=== PATIENT | female | born 1985 | race Caucasian/White ===

== ENCOUNTER 2022-03-03 15:11 | Outpatient (CLI) | payer BC, SELFPAY ==
[2022-03-03 18:19] LABS: HIV 1/2/P24 Combo Screen* Negative (Negative)
[2022-03-03 18:25] LABS: Hepatitis C Virus Antibody* Negative (Negative)
[2022-03-03 19:48] LABS: Chlamydia DNA Amplified* NOT DETECTED (No Detected); GC DNA Amplified* NOT DETECTED (No Detected)
== END 2022-03-03 15:12 | disposition home or self-care (01) ==
PROVIDERS: Visit Provider Advanced Practice Midwife
DX: Z34.90 Encounter for supervision of normal pregnancy, unspecified, unspecified trimester (principal); Z11.3 Encounter for screening for infections with a predominantly sexual mode of transmission
CPT/HCPCS: 86703; 86803; 87491; 87591

== ENCOUNTER 2022-03-15 08:21 | Outpatient (CLI) | payer BC, SELFPAY ==
--- NOTE | 2022-03-15 08:15 | CRLHL7_ITS ---
For Patients: As a result of the Century Cures Act, medical imaging exams and procedure reports are released immediately into your electronic medical record. You may view this report before your referring provider. If you have questions, please contact your health care provider. INDICATION: Evaluate anatomy. COMPARISON: none TECHNIQUE: Real time luna scale imaging of the fetus was performed as well as color Doppler analysis of the umbilical vessels. FINDINGS: Sonographic imaging demonstrates a single living intrauterine gestation. Fetus demonstrates a regular cardiac rate of 144 beats per minute. Fetus has a variable position. The placenta lies posterior without evidence of placenta previa. The edge of the placenta is located 4.9 cm from the internal cervical os. Amniotic fluid volume appears normal. Single deepest vertical pocket: 6.3 cm. The cervix is closed and measures 4.3 cm in length. The composite ultrasound gestational age is calculated at 23 weeks 3 days with an estimated sonographic due date of 07/09/2022. The estimated weight is 614 grams which lies at the 52nd %. The following biometric measurements were obtained: Biparietal diameter: 5.5 cm/22 weeks 5 days 20th% Head circumference: 21.0 cm/23 weeks 1 day 22nd% Abdominal circumference: 19.4 cm/24 weeks 0 days 62nd% Femur length: 4.1 cm/23 weeks 2 days 35th% The HC/AC ratio measures: 1.09 range (1.05-1.21) On anatomic survey, there is a normal appearance of the cerebral ventricles, cavum septi pellucidi, cisterna magna and cerebellum. The nose, lips, and facial profile appear normal. The cervical, thoracic and lumbar spine are well visualized and appear normal. There is a normal four-chamber heart view and the left and right ventricular outflow tracts appear normal. The diaphragm and stomach appear normal. The kidneys and bladder also appear normal. There is a normal three-vessel cord and cord insertion site. The four extremities appear normal. IMPRESSION: Normal OB ultrasound exam with concordance of clinical and sonographic dating. No intrinsic abnormalities noted on anatomic survey. Dictated by Ran Cespedes MD @ 03/15/2022 9:55:12 AM (Electronically Signed)
== END 2022-03-15 08:22 | disposition home or self-care (01) ==
LOC: US 08:21
PROVIDERS: Visit Provider Advanced Practice Midwife
DX: Z34.92 Encounter for supervision of normal pregnancy, unspecified, second trimester (principal); Z3A.23 23 weeks gestation of pregnancy
CPT/HCPCS: 76805

== ENCOUNTER 2022-04-12 10:08 | Outpatient (CLI) | payer BC, SELFPAY ==
[2022-04-14 07:27] LABS: Rapid Plasma Reagin (RPR) Non Reactive (Non Reactive)
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
== END 2022-04-12 10:09 | disposition home or self-care (01) ==
LOC: NFLDREF 12:53
PROVIDERS: Visit Provider Advanced Practice Midwife
DX: Z34.90 Encounter for supervision of normal pregnancy, unspecified, unspecified trimester (principal)
CPT/HCPCS: 86592

== ENCOUNTER 2022-06-14 09:29 | Outpatient (CLI) | payer BC, SELFPAY ==
[2022-06-15 11:46] LABS: Strep B DNA Probe POSITIVE (Negative)
[2022-06-15 11:47] LABS: Strep B Pen/Amox Allergy No
== END 2022-06-14 09:30 | disposition home or self-care (01) ==
LOC: NFLDREF 09:29
PROVIDERS: PCP Advanced Practice Midwife; Visit Provider Advanced Practice Midwife
DX: Z34.93 Encounter for supervision of normal pregnancy, unspecified, third trimester (principal)
CPT/HCPCS: 87081; 87653

== ENCOUNTER 2022-06-22 14:25 | Outpatient (CLI) | payer BC, SELFPAY | END 2022-06-22 14:26 | disposition home or self-care (01) | LOC: NFLDREF 06-24 14:24 | PROVIDERS: PCP Registered Nurse; Referring Provider Registered Nurse; Visit Provider Registered Nurse | DX: Z20.822 Contact with and (suspected) exposure to COVID-19 (principal); J06.9 Acute upper respiratory infection, unspecified | CPT/HCPCS: 87631 ==

== ENCOUNTER 2022-06-24 11:50 | Outpatient (CLI) | payer BC, SELFPAY ==
[2022-06-24 12:12] VITALS: BP 93/54; PULSE 86; RESP 18; TEMP 37.2
[2022-06-24 13:02] LABS: Appearance Urine Clear (Clear); Bilirubin Urine Negative (Negative); Blood Urine Negative (Negative); Color Urine Yellow (Yellow); Glucose Urine Negative (Negative); Ketones Urine Negative (Negative); Leukocyte Esterase Urine Negative (Negative); Nitrite Urine Negative (Negative); Protein Urine Negative (Negative); Urobilinogen Urine 0.2 (0.2-1.0); pH Urine 6.5 (5.0-8.5)
--- NOTE | 2022-06-24 13:09 | P.OBO_ITS ---
OB Outpatient HPI History of Present Illness Date Seen: 06/24/22 History of Present Illness: 36 year old at weeks gestation by first trimester ultrasound, JESSIE 07/09/22, presents with complaints of intermittent abdominal pain and decreased movement. She noticed less movement for the last two days and was having occasional contractions and describes abdominal pain that is sometimes pulling in nature. Baby moving naturally: Yes (since admission to triage) Bleeding: No Contractions: Yes (occasional) Leaking fluid: No Discharge: No Heartburn: No Back pain: No Meds Home Medications and Allergies Home Medications Medication Instructions Recorded Confirmed Type prenat.vits,suman,qpu-ziop-hcuix 1 tab PO QDAY 03/03/22 06/24/22 History Allergies Allergy/AdvReac Type Severity Reaction Status Date / Time azithromycin Allergy Unknown Verified 06/22/22 12:57 bee venom protein (honey bee) Allergy Unknown Verified 06/22/22 12:57 erythromycin base Allergy Unknown Verified 06/22/22 12:57 enviromental Allergy Unknown Uncoded 06/22/22 12:57 [facility] Medical History (Updated 06/24/22 @ 16:46 by Ene Dockery CNM) ADHD Anxiety Bipolar 1 disorder Depression Endometriosis History of HPV infection Hx of smoking URI (upper respiratory infection) Surgical History (Updated 03/03/22 @ 12:29 by Nena Perera PA-C) History of colposcopy with cervical biopsy History of laparoscopy Family History (Updated 03/03/22 @ 14:35 by Brittny Dc CNM) Father Leukemia Prediabetes Paternal Grandfather Diabetes Social History (Updated 03/03/22 @ 14:37 by Brittny Dc CNM) Narrative: SOCIAL??? 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 Partner: Khai zuleta Lives with: Khai, and 4 daughters (his 2 channel partners)??? Pets: 1 dog Abuse: Denies past/present??? Special Diet: Denies??? Ok with a blood transfusion: yes??? Culture or jehovah's witness beliefs: denies? Are you following a diet prescribed by a doctor: No Are you following a special diet: No Highest level of school completed/degree received: high school graduate Physical activity type: walking How many days of moderate to strenuous exercise, like a brisk walk, did you do in the last 7 days: 3 Smoking Status: Former smoker Non-prescribed substance use: denies use Caffeine: Yes (1 per week) Little interest or pleasure in doing things: several days Feeling down, depressed, or hopeless: several days History History 4 Elective abortions 0 Para 2 Spontaneous abortions 1 Hx # Term Pregnancies 2 Ectopic pregnancies 0 Hx # Pregnancies 0 Multiple births 0 Number of Living Children 2 Past Pregnancies Del. Date GA/Weeks Outcome Route wt Inf Gender Labor Lgth Anesthesia Location Provider [facility] 11/25/12 40 live - full term vaginal delivery 8 lb 6 oz Femal e 16 hours ot her [place] 06/12/20 40 live - full term vaginal delivery 6 lb 1 oz Femal e 3 hrs none [place] Delivery Date: 11/25/12 Last Updated by: Brittny Dc CNM Augmented at 40 weeks, intrathecal then water OB - H&P: Exam Physical Exam Vital signs: Pulse BP 86 93/54 L 06/24/22 12:12 06/24/22 12:12 Constitutional Constitutional: no acute distress Routine Abdominal Exam Abdominal: Present soft; Absent tenderness Comments: Gravid Detailed Labor and Delivery Exam Patient Gravid: Yes Comments: Occasional contractions Fetus (Single) Amniotic Membrane Status: intact Heart Rate Baseline: 130 Monitor Accelerations: Present Monitor Decelerations: None [employer]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
[2022-06-24 13:15] LABS: RBC Urine 0-2 (0-2); WBC Urine 0-2 (0-5)
--- NOTE | 2022-06-24 15:05 | PC.OBNST ---
NST Note NST Note Start: 06/24/22 11:59 Freq: ONCE Status: Discharge Protocol: Document 06/24/22 13:10 ABP (Rec: 06/24/22 13:50 ABP [id number]) NST Note 4 Para (# of births) 2 EDC 07/09/22 Gestational Age In Weeks & Days 37 Weeks & 6 Days Patient Presented with Complaint(s) of Contractions/cramping, Decreased movement,Pain If Pain, describe location Abdominal pain Reactive Yes CJ Cesar RN Date 06/24/22 Reactive Yes CJ Loja RN Date 06/24/22 OB NST charge Yes Complete NST Note via Write Note Yes The provider's electronic signature indicates the NST is reactive/appropriate for gestational age. *Note to provider: If an addendum is required, open the patient's chart and click on the note under the Nurse/Allied Health tab.
== END 2022-06-24 13:10 | disposition home or self-care (01) ==
LOC: OB OUT 11:50 → OB 11:51
PROVIDERS: PCP Registered Nurse; Visit Provider Advanced Practice Midwife
DX: O36.8190 Decreased fetal movements, unspecified trimester, not applicable or unspecified (principal); O26.899 Other specified pregnancy related conditions, unspecified trimester; R10.84 Generalized abdominal pain; Z3A.37 37 weeks gestation of pregnancy
CPT/HCPCS: 59025; 81001; 87210; 99213

== ENCOUNTER 2022-07-08 02:01 | Inpatient (IN) | payer BC, SELFPAY ==
[2022-07-08] VITALS (24 sets, daily range): BP systolic 94–130; BP diastolic 54–87; PULSE 75–134; RESP 16–18; TEMP 36.5–37.3; O2SAT 96–99; BMI 40.6
[2022-07-08] MEDS: AMPICILLIN 2 GM in 0.9 % SODIUM CHLORIDE Mini-bag 100 ML IVPB (02:40)
--- NOTE | 2022-07-08 02:41 | W.PM.LDBA ---
Subjective History of Present Illness Time Seen by Provider: 02:41 Date Seen: 07/08/22 Narrative: Patient is being admitted to Labor and Delivery for SROM. She was up going to the bathroom, and when she leaned forward, she felt a pop and a big gush. Fluid was clear, noted at 1am. She feels some mild ctx since this. She is a 36 year old at 39.6 weeks gestation. Her full history and physical was dictated by Xuan on 06/22/22. Please see this for details. Her partner is at the bedside for support. Partner - Khai H& P done 06/22/22 by Maame Dawson, MANUFACTURING MAINTENANCE MECHANIC 1. Bipolar, ADHD, anxiety, and depression. Feels stable on PRN zoloft at initial visit. 2. 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 Hx, endometriosis 4. Hx smoker-quit with +UPT 5. FOB recently out of treatment for ETOH 6. FOB hx of Pmbgl-Zgksdxnlg-Xcvlg. Had surgery at age 21 and 22. 7. GBS +, recommend antibiotics in Labor Transfer records: OB Labs:??? Blood type: AB+, antibody screen negative.??? Hgb (02/01/22): 12.2??? Platelets (02/01/22): 202??? Rubella: Immune??? RPR: non-reactive??? HBsAg: negative??? HIV: negative??? GC/Chlamydia: negative/negative??? Pap (11/16/20): NIL, HPV negative; 11/06/2019 CIN1 followed by colposcopy ?? Genetic screening: low risk? IMAGING:??? 1st trimester: Date discrepancy LMP EDC 07/29/22, U/S EDC 07/09/22. Normal scan.??? OB - Problem Based A/P Additional Plan (1) : Status: Acute (2) SROM (spontaneous rupture of membranes): Status: Acute Plan Assessment:?? 36 yo at 39.6 weeks gestation?? GBS positive SROM, clear fluid Patient is coping well with challenges of labor.?? Labor type:Early labor, irregular ctx complicated by: -Bipolar, ADHD, anxiety, and depression -Stable on PRN zoloft at initial visit. ? Plan:?? Reviewed options of expectant management at this time, vs pitocin augmentation. Decision made to proceed with expectant management at this time to allow for antibiotic doses and rest. Will consider pitocin in the AM. GBS prophylaxis per protocol Intermittent monitoring per protocol. IV access for GBS+ prophylaxis Candidate for analgesia of choice. Planning unmedicated , previous two births also unmedicated Desires waterbirth. Consent signed, hep C negative Anticipate progress to NVD. Delivery/Labor/Induction Plan Plan: expectant management OB Exam Physical Exam Vital signs: Temp Pulse Resp BP Pulse Ox 98.6 F 134 H 18 110/72 96 07/08/22 02:06 07/08/22 02:06 07/08/22 02:06 07/08/22 02:06 07/08/22 02:08 Narrative: VSS, afebrile? General Appearance:? Calm, cooperative.? No acute distress.? Normal affect.? Psychiatric Exam: Alert and oriented, appropriate affect? HEENT: normocephalic, neck supple, full ROM? Respiratory:? Symmetrical chest wall movement.? Normal respiratory effort.? Clear to auscultation? Cardiac:? regular rate and rhythm? Abdomen: Gravid, non tender? Extremities:? normal and trace edema? Skin: warm, dry.??? Ctx:? Mild, irregular FHTs:? Baseline: 135.? Variability: moderate.?? Accels: present.??? Decels:? none.? SVE: 1-2/50/-4 per RN Membranes: ? SROM,? clear fluid, X 2.5 hours?
[2022-07-08 03:16] LABS: SARS PCR* Negative SARS-CoV-2 (Negative)
[2022-07-08] MEDS: ACETAMINOPHEN 500 MG TABLET 1000 MG PO ×2 (03:16→20:34)
[2022-07-08] MEDS: AMPICILLIN 1 GM in 0.9 % SODIUM CHLORIDE Mini-bag 100 ML IVPB ×2 (06:23→10:34)
--- NOTE | 2022-07-08 10:22 | PM.OBPNL ---
Documented by User: Roma Sutton 07/08/22 10:37 Subjective Date Seen: 07/08/22 Narrative: Jeaneth is up walking in her room. Appears comfortable her partner Khai is present. She feels her contractions picked up with pumping her breasts then stopped as soon as she stopped pumping. Reviewed options at this time including, continuing with current activity with no medical intervention, administration of Cytotec orally with or without a cervical exam, and IV Pitocin after a cervical exam. Jeaneth desires to move forward with exam and IV Pitocin. Objective Exam: Constitutional: Alert and oriented x3, no distress, coping well? Vital signs stable, see nurse documentation?? Abdomen: gravid, contractions palpate moderate with contractions and soft between Vital Signs: Last Vital Signs Temp 98.1 F 07/08/22 09:15 Pulse 94 07/08/22 06:26 Resp 16 07/08/22 06:26 BP 108/64 07/08/22 06:26 Pulse Ox 96 07/08/22 02:08 Pelvic Exam Dilation (cm): 4 Effacement (%): 75 Station: -2 Contractions Monitor mode: Palpation Contraction Frequency: 3-5 Contraction pattern: Irregular Contraction intensity: Moderate Assessment Assessment: early labor Station: -2 Amniotic Membrane Status: SROM Heart Rate Baseline: 145 Labor Progress: Intermittent monitoring Plan Plan: Assessment:?? 36 yo at? 39.6 weeks gestation?? GBS positive SROM, clear fluid Patient is coping well with challenges of labor.?? Labor type:Early labor, irregular ctx complicated by: -Bipolar, ADHD, anxiety, and depression -Stable on PRN zoloft at initial visit. ? Plan:?? Reviewed options of expectant management at this time, vs cytotec or pitocin augmentation.? Decision made to proceed with Pitocin. GBS prophylaxis per protocol Continuous monitoring per protocol. IV access for GBS+ prophylaxis Candidate for analgesia of choice.? Planning unmedicated , previous two births also unmedicated Desires waterbirth.? Consent signed, hep C negative Anticipate progress to NVD.? Documented by User: Ene Dockery CNM 07/08/22 21:59 Plan Plan: Assessment:?? 36 yo at? 39.6 weeks gestation?? GBS positive SROM, clear fluid Patient is coping well with challenges of labor.?? Labor type:Early labor, irregular ctx complicated by: -Bipolar, ADHD, anxiety, and depression -Stable on PRN zoloft at initial visit. ? Plan:?? Reviewed options of expectant management at this time, vs cytotec or pitocin augmentation.? Decision made to proceed with Pitocin. GBS prophylaxis per protocol Continuous monitoring per protocol. IV access for GBS+ prophylaxis Candidate for analgesia of choice.? Planning unmedicated , previous two births also unmedicated Desires waterbirth.? Consent signed, hep C negative Anticipate progress to NVD.? HYACINTH Cook with supervision by Ene Dockery CNM
[2022-07-08] MEDS: OXYTOCIN 30 unit/500 ML in NS 30 UNIT/500 ML BAG IVPB (10:30)
[2022-07-08] MEDS: LACTATED RINGERS 1000 ML 1,000 ML 125 ML IV ×2 (10:35→15:40)
[2022-07-08] MEDS: fentaNYL 100 MCG/2 ML inj IVP (14:35)
[2022-07-08 15:27] LABS: Basophils Percent Auto 0.2 % (0.0-3.0); Eosinophils Percent Auto 0.7 % (0.0-7.0); Hematocrit 34.1 % (33.0-51.0); Hemoglobin* 11.4 gm/dL (12.0-16.0); Immature Granulocytes Pct Auto 0.8 %; Lymphocytes Percent Auto 10.9 % (20-44); Mean Corpuscular HGB Conc 33 gm/dL (32-36); Mean Corpuscular Hemoglobin 29 pg (26-34); Mean Corpuscular Volume 87 fL (80-100); Monocytes Percent Auto 3.6 % (0.0-11.0); Neutrophils Percent Auto 83.8 % (42.0-72.0); Platelet Count* 213 K/uL (140-440); RDW Coefficient of Variation % 13.4 % (11.5-15.5); Red Blood Count 3.93 m/uL (4.00-5.20); White Blood Count* 18.14 K/uL (4.50-11.00)
[2022-07-08 15:30] LABS: Slide Review Reflex No
--- NOTE | 2022-07-08 15:30 | W.PM.OBVAGDE ---
Documented by User: Roma Sutton 07/08/22 18:31 OB Procedure Vag Delivery Mother Details Mother Details: Jeaneth is a 36 year-old, 4, Para 3, admitted on 07/08/22 at 39 weeks 6 Days gestation for SROM at 0100 with clear fluid. : 4 Para: 4 Weeks Gestation: 39.6 Admission Date: 07/08/22 Additional Details Amniotic Membrane Status: SROM Amniotic Membrane Rupture Date: 07/08/22 Amniotic Membrane Rupture Time: 01:00 Amniotic Membrane Fluid Description: Clear Analgesia/Anesthesia Type: None Waterbirth: Yes Pitcoin: Yes Intrapartal Events: Labor Augmentation and Precipitous Labor <3 Hrs Delivery augmentation: pitocin Labor Onset: 12:50 Complete: 13:47 Pushin:47 Heart: heart tones during second stage were poorly traced but audibly 110's with no decelerations. Delivery Details Delivery Date: 07/08/22 Delivery Time: 14:05 Route of delivery: Infant Gender: Male Viability: Alive; Heart Rate Present Position at Delivery: OA Delivery Details: After approximately 8 hours she had progressed to 4 cm but was not sascha regularly and the patient did not want to continue to wait for labor. IV Pitocin was started and she progressed to complete. She had good pushing efforts and had a male born via vaginal delivery in the tub, loose body cord somersaulted through at delivery. Infant was placed on maternal abdomen, tactile stimulation and bulb suction.?Baby was slow to cry and discussed clamping and cutting cord, when baby was turned over to clamp and spontaneously cried. Cord was clamped and cut after a 60 second delay and brought to the warmer for stimulation for low heart rate. Mother recovered for short time in tub, then walked with assistance from the tub to the bed for delivery of placenta.?On initial assessment of placenta with gentle cord traction there was no movement and significant tension on cord. After approximately 25 minutes attempted placenta delivery with gentle traction, appeared to be delivering with traction until just at the vaginal opening. At that time the cord avulsed, manually attempted to remove placenta but patient wasn't tolerating. IV Fentanyl given for pain, second attempt at removal by Ene Dockery CNM. Unable to remove placenta without concerns for retained products, called to assess. Dr. Ozuna at bedside attempted manual removal without success, plan for patient to go to OR. See documentation by Dr Ozuna for further details. Roma Sutton SNM with Ene Dockery CNM supervising. 1 Minute Interval Total Score: 4 5 Minute Interval Total Score: 9 Additional Details Shoulder Dystocia: No Placental Delivery Description: in OR Procedure Done: Global Blood Loss: 300 Laceration: None (not with observation, to OR for retained placenta, OB to examine closer) Blood Loss Measurement Type: EBL Bakri Used: No Sponge/Need Count Correct: Yes Cord Vessel Description: 3 Vessels, Around Body and Delivered through Event Summary Status: was stable after delivery. Mother care transitioned to OB for manual placenta removal in OR. Disposition: other (To OR should return to floor.) Documented by User: Ene Dockery CNM 07/08/22 18:56 OB Procedure Vag Delivery Mother Details Mother Details: Jeaneth is a 36 year-old, 4, Para 3, admitted on 07/08/22 at 39 weeks 6 Days gestation for SROM at 0100 with clear fluid. GBS +, treated with antibiotics in labor. Delivery Details Delivery Details: After approximately 8 hours she had progressed to 4 cm but was not sascha regularly and the patient did not want to continue to wait for labor. IV Pitocin was started and she progressed to complete. GBS adequately treated in labor. She had good pushing efforts and had a male infant born via vaginal delivery in the tub, loose body cord somersaulted through at delivery. Infant was placed on maternal abdomen, tactile stimulation and bulb suction.?Baby was slow to cry and discussed clamping and cutting cord, when baby was turned over to clamp and spontaneously cried. Cord was clamped and cut after a 60 second delay and brought to the warmer for stimulation for low heart rate. Mother recovered for short time in tub, then walked with assistance from the tub to the bed for delivery of placenta.?On initial assessment of placenta with gentle cord traction there was no movement and significant tension on cord. After approximately 25 minutes attempted placenta delivery with gentle traction, appeared to be delivering with traction until just at the vaginal opening. At that time the cord avulsed, manually attempted to remove placenta but patient wasn't tolerating. IV Fentanyl given for pain, second attempt at removal by Ene Dockery CNM. Unable to remove placenta without concerns for retained products, MD called to assess. Dr. Ozuna at bedside attempted manual removal without success, plan for patient to go to OR. See documentation by Dr Ozuna for further details. Roma CLAROS with Ene Dockery CNM supervising. Additional Details Blood Loss Measurement Type: EBL (in the tub) Event Summary Status: Infant was stable after delivery. Mother care transitioned to OB for manual placenta removal in OR.
[2022-07-08] MEDS: miSOPROStoL 800 MCG/4 TABLET PR (16:16)
--- NOTE | 2022-07-08 16:38 | P.ANES_ITS ---
Anesthesia Charges Start Date/Time Anesthesia Start Date: 07/08/22 Anesthesia Start Time: 15:40 Stop Date/Time Anesthesia Stop Date: 07/08/22 Anesthesia Stop Time: 16:31 Summary Emergency: ENROLLED AGENT
--- NOTE | 2022-07-08 16:51 | W.PM.GYNPROC ---
Procedure Note Time Seen by Provider: 15:00 Date Seen: 07/08/22 Procedure Details: EXAM UNDER ANESTHESIA DILATION AND CURETTAGE PREOPERATIVE DIAGNOSIS: 1. Cord avulsion 2. Retained placenta 3. hemorrhage POSTOPERATIVE DIAGNOSIS: 1. Cord avulsion 2. Retained placenta 3. hemorrhage PROCEDURE: 1. EUA 2. Manual placenta removal 3. Suction and sharp dilation and curettage SURGEON: Silva Ozuna MD ACCESSIBILITY LIFT TECHNICIAN: None ANESTHESIA: MAC FINDINGS: 1. Uterus is approximately 18 weeks in size 2. Part of the placenta is protruding out of the vagina 3. Right periclitoral laceration - hemostatic 4. Ultrasound after procedure showed thin endometrial stripe in the transverse and sagittal view FLUIDS: 500 cc ESTIMATED BLOOD LOSS: 1516 cc (total from delivery + in the OR) URINE OUTPUT: 300 cc COMPLICATIONS: None SPECIMEN: 1. Placenta INDICATIONS: 36yo with hemorrhage 2/2 to retained placenta after delivery. DESCRIPTION OF PROCEDURE: The patient was taken to the operating room where monitored anesthesia care was administered. She was prepared and draped in normal sterile fashion in the dorsal lithotomy position in yellow fin stirrups, taking care to avoid lower extremity hyperextension, hyperflexion or compression. A surgical time-out was performed with the entire operative staff per protocol. Perioperative antibiotics were given. EUA revealed the above findings. Bladder was drained with a red rubber. Manual sweep all the way up until the fundus was employed to remove the placenta off the uterine wall. After placental removal, bleeding was immediately improved and uterine tone was firm. A speculum was placed in the patient's vagina and a ring forceps was placed on the anterior lip of the cervix. The cervix was already dilated and accommodated an 11 Sinhala suction curettage. The suction curettage was then inserted under direct visualization with ultrasound. The uterus was then gently suction curetted and rotated to clear the uterus of products of conception. Unfortunately uterine fundus was unable to be reach with the suction. Banjo curret was used to sweep the fundus. This was performed until a gritty texture was noted and the uterus was cleared of all remaining products of conception. There was minimal bleeding noted after the curettage was removed. Uterine tone was excellent. The ring forceps was removed from the anterior lip of the cervix and excellent hemostasis was noted. All instruments were removed. Specimen was sent to pathology. The patient tolerated the procedure well. Sponge, lap and needle counts were correct x 2. The patient was taken to the recovery room in stable condition. Uterotonic: 40 u of pitocin IV and 800 mcg of misoprostol rectally. Perioperative antibiotics: 2 gram of cefoxitin
--- NOTE | 2022-07-08 16:51 | PM.OBCN1 ---
OB - CN: HPI Date of Consult Time Seen by Provider: 14:00 Date Seen: 07/08/22 Patient: [facility] Patient Consult date: 07/08/22 Requesting Physician: Ene Dockery CNM Primary Care Provider: Consuelo Dawson CNP Consult Narrative Reason for consult: retained placenta Narrative: The patient is a 36 year old G 4 P 3013 who delivered at 39w6d on 07/08/22. Her delivery of fetus was uncomplicated. However, delivery of placenta was complicated by cord avulsion and retained placenta. I tried doing manual removal bedside but patient could not tolerate full manual sweep. Bedside ultrasound showed that part of the placenta was still at the fundus despite presenting at the vaginal introitus. I counseled patient on going back to the OR for an exam under anesthesia, removal of the placenta, and d&c. Will give her abx to decrease risk of endometritis. Patient agreed with plan and all questions were answered. History History 4 Elective abortions 0 Para 3 Spontaneous abortions 1 Hx # Term Pregnancies 2 Ectopic pregnancies 0 Hx # Pregnancies 0 Multiple births 0 Number of Living Children 0 Past Pregnancies Del. Date GA/Weeks Outcome Route wt Inf Gender Labor Lgth Anesthesia Location Provider Complbobby 11/25/12 40 live - full term vaginal delivery 8 lb 6 oz Female 16 hours other Janeth 06/12/20 40 live - full term vaginal delivery 6 lb 1 oz Female 3 hrs none [place] Delivery Date: 11/25/12 Last Updated by: Brittny Dc CNM Augmented at 40 weeks, intrathecal then water Labs OB Labs: Lab Assessment Start: 07/08/22 01:58 Freq: ONCE Status: Complete Protocol: PC.OBGBS Activity Type Activity Date Activity User E-sign Co-sign Detail Recorded Client Recorded Date Recorded By Document 07/08/22 02:13 NORTONM Desktop 07/08/22 02:14 [facility] 07/08/22 02:13 Lab Assessment GBS Positive Previous [place] with Invasive GBS No Does Patient Meet Criteria No No Treatment Needed OK Maternal Blood Type AB Maternal RH Factor Positive Evaluate Maternal Rubella Immune Status Immune Hepatitis B Surface Antigen Negative Maternal HIV Status Negative Maternal Syphillis (RPR) Status Negative Are Labs Available Yes PFSH PFSH Medical History (Updated 07/08/22 @ 03:45 by Chel Gomez CNM) ADHD ?F90.9 - Attention-deficit hyperactivity disorder, unspecified type (ICD-10) Anxiety ?F41.9 - Anxiety disorder, unspecified (ICD-10) Bipolar 1 disorder ?F31.9 - Bipolar disorder, unspecified (ICD-10) Depression ?F32.A - Depression, unspecified (ICD-10) Endometriosis ?N80.9 - Endometriosis, unspecified (ICD-10) History of HPV infection ?Z86.19 - Personal history of other infectious and parasitic diseases (ICD-10) Hx of smoking ?Z87.891 - Personal history of nicotine dependence (ICD-10) URI (upper respiratory infection) ?J06.9 - Acute upper respiratory infection, unspecified (ICD-10) Surgical History (Updated 03/03/22 @ 12:29 by Nena Perera PA-C) History of colposcopy with cervical biopsy ?Z98.890 - Other specified postprocedural states (ICD-10) History of laparoscopy ?Z98.890 - Other specified postprocedural states (ICD-10) Family History (Updated 03/03/22 @ 14:35 by Brittny Dc CNM) Father Leukemia Prediabetes Paternal Grandfather Diabetes Social History (Updated 03/03/22 @ 14:37 by Brittny Dc CNM) Narrative: SOCIAL??? 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 Work: [employer]?? Partner: Khai [facility] sogn Lives with: Khai, and 4 daughters (his 2 division officer weapons department)??? Pets: 1 dog Abuse: Denies past/present??? Special Diet: Denies??? Ok with a blood transfusion: yes??? Culture or methodist beliefs: denies? Are you following a diet prescribed by a doctor: No Are you following a special diet: No Highest level of school completed/degree received: high school graduate Physical activity type: walking How many days of moderate to strenuous exercise, like a brisk walk, did you do in the last 7 days: 3 Smoking Status: Former smoker Non-prescribed substance use: denies use Caffeine: Yes (1 per week) Little interest or pleasure in doing things: several days Feeling down, depressed, or hopeless: several days Meds Home Medications and Allergies Home Medications Medication Instructions Recorded Confirmed Type prenat.vits,suman,geb-gvim-wtpne 1 tab PO QDAY 03/03/22 07/08/22 History Allergies Allergy/AdvReac Type Severity Reaction Status Date / Time azithromycin Allergy Unknown Verified 07/08/22 02:14 bee venom protein (honey bee) Allergy Unknown Verified 07/08/22 02:14 erythromycin base Allergy Unknown Verified 07/08/22 02:14 enviromental Allergy Unknown Uncoded 06/30/22 14:41 OB - H&P: Exam Physical Exam: Vital signs: Temp Pulse Resp BP Pulse Ox 99 F 96 16 110/57 L 96 07/08/22 13:40 07/08/22 15:17 07/08/22 12:33 07/08/22 15:17 07/08/22 02:08 Narrative: Pelvic exam: Mons normal, clitoris normal, urethral meatus normal. Labia minora and majora normal in appearance bilaterally. Perineum and anus appeared edematous but expected due to recent delivery. Vaginal introitus with part of the placenta presenting. OB - Results Labs Labs: Short CBC 07/08/22 Range/Units 15:21 WBC 18.14 H (4.50-11.00) K/uL Hgb 11.4 L (12.0-16.0) gm/dL Hct 34.1 (33.0-51.0) % Plt Count 213 (140-440) K/uL OB - CN: A/P Assessment and Plan (1) : Status: Acute (2) SROM (spontaneous rupture of membranes): Status: Acute
[2022-07-08] MEDS: cefOXitin 2 GM in 0.9 % SODIUM CHLORIDE Mini-bag 100 ML IVPB (16:59)
[2022-07-08] MEDS: IBUPROFEN 600 MG TABLET PO (16:59)
[2022-07-09 00:58] VITALS: BP 91/57; PULSE 76; RESP 16; TEMP 36.9
[2022-07-09] MEDS: IBUPROFEN 600 MG TABLET PO ×4 (01:02→22:17)
[2022-07-09] MEDS: ACETAMINOPHEN 500 MG TABLET 1000 MG PO ×3 (05:13→19:21)
[2022-07-09 05:20] VITALS: BP 96/59; PULSE 84; RESP 16; TEMP 36.6; O2SAT 95
[2022-07-09 06:21] LABS: Hemoglobin* 9.2 gm/dL (12.0-16.0)
[2022-07-09 08:00] VITALS: BP 113/67; PULSE 88; RESP 16; TEMP 36.7; O2SAT 98
[2022-07-09] MEDS: FERROUS SULFATE 325 MG TABLET PO (08:14)
[2022-07-09] MEDS: DOCUSATE SODIUM 100 MG CAPSULE PO (08:14)
--- NOTE | 2022-07-09 08:45 | P.OBPN_ITS ---
Documented by User: Roma Sutton 07/09/22 09:09 OB - PN:Subj Subjective Date Seen: 07/09/22 Interval history: 36 yo G4 now P3 S/P complicated by retained placenta requiring surgical intervention and PPH Patient comments OB post-: pain well controlled Closplint status: and doing well feeding status: exclusively Narrative: Jeaneth is sitting up in bed holding her baby. She states she feels well, denies lightheadedness or dizziness when up. Has been up in room independently. Reports her pain in abdomen is 4/10 using Tylenol and ibuprofen for pain.? The pain is well controlled with current medications.? She has no new complaints.? Urinary output is adequate and she is voiding without difficulty.? Has a good appetite, is tolerating a general diet, is passing flatus, and has not yet had a bowel movement.? Has scant amount of rubra lochia.? She is ambulating well. She is and reports it is going well. OB - PN: Obj Exam Physical Exam: Vital signs: Temp Pulse Resp BP Pulse Ox O2 Del Method 97.8 F 84 16 96/59 L 95 Room Air 07/09/22 05:20 07/09/22 05:20 07/09/22 05:20 07/09/22 05:20 07/09/22 05:20 07/09/22 05:20 Narrative: GENERAL APPEARANCE:? normal affect, alert, no distress? MOOD:? appropriate? CHEST:? clear to auscultation? HEART:? regular rate and rhythm? ABDOMEN:? soft, non-tender the uterine fundus is firm At Umbilicus, Midline and is appropriate for the stage of recovery.? PERINEUM:? mild edema of the perineum, there is a Perineal Laceration,?first degree that is healing well.? EXTREMITIES:? normal and trace edema OB - PN: Obj Data Labs Labs: Laboratory Results - last 24 hr 07/08/22 07/09/22 15:21 06:05 WBC 18.14 H RBC 3.93 L Hgb 11.4 L 9.2 L Hct 34.1 MCV 87 MCH 29 MCHC 33 RDW Coeff of [place] 13.4 Plt Count 213 Neut % (Auto) 83.8 H Lymph % (Auto) 10.9 L Simpson % (Auto) 3.6 Eos % (Auto) 0.7 Baso % (Auto) 0.2 Neut # (Auto) 15.20 H Lymph # (Auto) 2.00 Simpson # (Auto) 0.70 Eos # (Auto) 0.10 Baso # (Auto) 0.00 Blood Type AB Positive Antibody Screen NEGATIVE OB - PN: A/P Vaginal Delivery Assessment and Plan (1) Encounter for care and examination of mother immediately after delivery: Status: Acute (2) Vaginal delivery: Status: Acute (3) Encounter for care and examination of lactating mother: Status: Acute (4) Anemia due to acute blood loss: Status: Acute Plan day: 1 Plan: routine care Documented by User: Ene Dockery CNM 07/09/22 09:08 OB - PN:Subj Subjective Interval history: 36 yo G4 now P3013 S/P complicated by retained placenta requiring surgical intervention and PPH Narrative: Jeaneth is 36 yo at 40 0/7 weeks gestation is sitting up in bed holding her baby. She states she feels well, denies lightheadedness or dizziness when up. Has been up in room independently. Reports her pain in abdomen is 4/10 using Tylenol and ibuprofen for pain.? The pain is well controlled with current me dications.? She has no new complaints.? Urinary output is adequate and she is voiding without difficulty.? Has a good appetite, is tolerating a general diet, is passing flatus, and has not yet had a bowel movement.? Has scant amount of rubra lochia.? She is ambulating well. She is and reports it is going well. OB - PN: A/P Vaginal Delivery Assessment and Plan (1) Encounter for care and examination of mother immediately after delivery: Status: Acute (2) Vaginal delivery: Status: Acute (3) Encounter for care and examination of lactating mother: Status: Acute (4) Anemia due to acute blood loss: Status: Acute Plan Comments: Anemia. Iron supplement started. Lactating mother. May see if desired. Anticipate discharge tomorrow.
[2022-07-09 12:00] VITALS: BP 110/80; PULSE 92; RESP 16; O2SAT 98
[2022-07-09 21:12] VITALS: BP 93/56; PULSE 82; RESP 18; TEMP 36.6; O2SAT 95
[2022-07-10 05:27] VITALS: BP 107/66; PULSE 93; RESP 16; TEMP 36.7; O2SAT 96
[2022-07-10] MEDS: ACETAMINOPHEN 500 MG TABLET 1000 MG PO (07:41)
[2022-07-10] MEDS: FERROUS SULFATE 325 MG TABLET PO (07:42)
[2022-07-10] MEDS: DOCUSATE SODIUM 100 MG CAPSULE PO (07:42)
--- NOTE | 2022-07-10 08:03 | PM.OBDSVD1 ---
DS: Providers Provider Date Seen: 07/10/22 Date of admission: 07/08/22 02:01 Primary care physician: Consuelo Dawson CNP Admitting Clinician: Chel Gomez CNM Attending Physician on discharge: Roma CLAROS supervised by Ene Dockery CNM Date of Discharge: 07/10/22 DS: Diagnosis Discharge Diagnosis (1) Encounter for care and examination of mother immediately after delivery: Status: Acute (2) Encounter for care and examination of lactating mother: Status: Acute (3) Anemia due to acute blood loss: Status: Acute Exam Narrative: Exam Narrative: GENERAL APPEARANCE:? normal affect, alert, no distress? MOOD:? appropriate? CHEST:? clear to auscultation? HEART:? regular rate and rhythm? ABDOMEN:? soft, non-tender the uterine fundus is firm At Umbilicus, Midline and is appropriate for the stage of recovery.? PERINEUM:? mild edema of the perineum, there is not a Perineal Laceration.? EXTREMITIES:? normal and trace edema Const: Vital Signs, click to edit/add: Vital Signs - 24 hr 07/09/22 12:00 07/09/22 21:12 07/10/22 05:27 Temperature 97.8 F 98.1 F Pulse Rate [Blood Pressure Cuff] 92 82 93 Respiratory Rate 16 18 16 Blood Pressure [Le ft Arm] 110/80 93/56 L 107/66 Pulse Oximetry 98 95 96 Oxygen Delivery Me thod Room Air Room Air Room Air Documenting provider has reviewed patient's vital signs: yes OB - DS: Summary Hospital Course Hospital Course: Jeaneth is a 36 year old G 4 P 3 at 39.6 weeks gestation that was admitted to the Center on 07/08/22 for SROM. She had an uncomplicated vaginal delivery with a retained placenta requiring surgical intervention and a PPH. She delivered a viable male infant. She is breast feeding. the patient has done well. Peripartum Data delivery method: Vaginal Laceration description: None complications: retained placenta (and PPH) [place] Infant Gender: Male Discharge Plan: Home Status at Discharge Cognitive/behavioral status at discharge: The patient feels well.? The pain is well controlled with current medications.? She has no new complaints.? Urinary output is adequate and she is voiding without difficulty.? Has a good appetite, is tolerating a general diet, is passing flatus, and has had a bowel movement.? Has small amount of rubra lochia.? She is ambulating well. She is and reports it is going well. She plans to use oral contraceptives for control. She wants to go home. Functional status at discharge: independent ambulation Overall status at discharge: patient is progressing back to baseline Time Spent with Patient Time attestation: Total time spent providing and/or coordinating discharge services: Time spent: Less than 30 minutes Discharge Plan Discharge Disposition: Home, Self-Care Date of Admission: 07/08/22 02:01 Attending Provider on Discharge: Ene Dockery Primary Care Provider: Consuelo Dawson Condition: Stable Anticipated Discharge Date/Time: 07/10/22 12:00 Discharge Medications: New acetaminophen 500 mg Tablet 1,000 mg PO Q6H PRNQty: 0 0RF ferrous sulfate 325 mg (65 mg iron) Tablet 325 mg PO DAILYWM Qty: 60 3RF docusate sodium 100 mg Capsule 100 mg PO DAILY Qty: 90 1RF ibuprofen 600 mg Tablet 600 mg PO Q6H PRNQty: 60 0RF Continued prenat.vits,suman,hwl-xjbd-jurae Tablet 1 tab PO QDAY Discharge Orders: Discharge Order (Routine); Ordered 07/10/22 Ordered By: Ene Dockery Patient Education: OB Over the Counter Medication Information, OB Vaginal/Breast Feeding Additional Instructions: Discharge instructions were reviewed with the patient including signs and symptoms of infection and home going medications Nothing vaginally for 6 weeks: no tampons or intercourse Off Work or School for 6 weeks 2-week visit: discuss infant feeding concerns, review control options and screen for anxiety/depression. 6-week visit for an annual exam. consultation services are available to all mothers and babies for the first year after delivery.? To make an appointment, please call [phone]. Activity Level: Activity as Tolerated Discharge Diet: Regular Follow Up Appointments: [facility] [Provider Group] Forms: Heart Test Laboratoriesth Info Instructions
== END 2022-07-10 11:15 | disposition home or self-care (01) | DRG 541 ==
LOC: OB OUT 07-18 16:01 → MEDSURG 07-20 10:54 → OB 07-20 13:34
PROVIDERS: Advanced Practice Midwife; Obstetrics & Gynecology; Admitting Provider Advanced Practice Midwife; PCP Registered Nurse; Visit Provider Advanced Practice Midwife
PROC: 10D17ZZ Extraction of Products of Conception, Retained, Via Natural or Artificial Opening (ICD-10-PCS; principal; 2022-07-08 15:30)
DX: O99.824 Streptococcus B carrier state complicating childbirth (principal); O69.89X0 Labor and delivery complicated by other cord complications, not applicable or unspecified; O72.0 Third-stage hemorrhage; D62 Acute posthemorrhagic anemia; O99.02 Anemia complicating childbirth; O99.344 Other mental disorders complicating childbirth; F90.9 Attention-deficit hyperactivity disorder, unspecified type; F31.9 Bipolar disorder, unspecified; F41.9 Anxiety disorder, unspecified; Z37.0 Single live birth; Z3A.39 39 weeks gestation of pregnancy
CPT/HCPCS: 00940; 36415; 85018; 85025; 86850; 86900; 86901; 87635; 88307; 99140; 99213; A9270; J0290; J0694; J2250; J2405; J2590; J2704; J3010; J3490; J7120

== ENCOUNTER 2022-07-26 11:45 | Outpatient (CLI) | payer BC, SELFPAY | END 2022-07-26 11:46 | disposition home or self-care (01) | PROVIDERS: PCP Registered Nurse; Referring Provider Registered Nurse; Visit Provider Advanced Practice Midwife | DX: R39.9 Unspecified symptoms and signs involving the genitourinary system (principal) | CPT/HCPCS: 87086 ==

== ENCOUNTER 2022-10-04 11:30 | Outpatient (CLI) | payer BC, SELFPAY | END 2022-10-04 11:31 | disposition home or self-care (01) | LOC: NFLDREF 18:11 | PROVIDERS: PCP Registered Nurse; Referring Provider Registered Nurse; Visit Provider Nurse Practitioner Family | DX: Z79.899 Other long term (current) drug therapy (principal); F90.9 Attention-deficit hyperactivity disorder, unspecified type | CPT/HCPCS: 80053; 82306; 84443 ==

== ENCOUNTER 2023-09-08 08:48 | Outpatient (CLI) | payer BC, SELFPAY ==
[2023-09-08 15:28] LABS: Chlamydia DNA Amplified* NOT DETECTED (No Detected); GC DNA Amplified* NOT DETECTED (No Detected)
== END 2023-09-08 08:49 | disposition home or self-care (01) ==
PROVIDERS: PCP Family Medicine; Visit Provider Advanced Practice Midwife
DX: Z11.3 Encounter for screening for infections with a predominantly sexual mode of transmission (principal)
CPT/HCPCS: 86592; 86703; 86706; 86803; 87340; 87491; 87591